=== PATIENT | female | born 1995 | race Hispanic/Latino ===

== ENCOUNTER 2017-01-06 15:14 | Observation (INO) | payer OTHER ==
[2017-01-06 15:52] VITALS: BMI 23.2
[2017-01-06] MEDS ORDERED: Sodium Chloride 0.9% 1,000 ML IV STA (16:02)
--- NOTE | 2017-01-06 16:09 | ED PDOC ---
"Arrival/HPI - General Chief Complaint: Abdominal Pain Time Seen by Provider: 01/06/17 15:18 Historian: Patient - History of Present Illness Narrative History of Present Illness (Text): 01/06/17 16:20 21-year-old female with history of lupus presents today with a one-week history of lower abdominal pain. Patient describes intermittent crampy lower abdominal pain greatest in the left lower quadrant of the abdomen. Denies any urinary symptoms. Denies vaginal bleeding or vaginal discharge. No chest pain or shortness of breath. Denies fevers or chills. Denies back pain. Patient states is a history of colitis in the past. She denies rectal bleeding. No medications have been taken at home. No other complaints Time/Duration: 1 week Symptom Onset: Gradual Symptom Course: Intermittent Quality: Cramping Severity Level: 4 Past Medical History - Provider Review Nursing Documentation Reviewed: Yes - Travel History Have you recently traveled outside [place] w/in the past 3 mons?: No - Infectious Disease Hx of Infectious Diseases: None - Tetanus Immunization Tetanus Immunization: Unknown - Cardiac Hx Cardiac Disorders: No - Pulmonary Hx Respiratory Disorders: No - Neurological Hx Neurological Disorder: No - HEENT Hx HEENT Disorder: No - Renal Hx Renal Disorder: Yes Hx Pyelonephritis: Yes (09/10/13) - Endocrine/Metabolic Hx Endocrine Disorders: Yes Hx Systemic Lupus Erythematosus: Yes Other/Comment: lupus - Hematological/Oncological Hx Blood Disorders: No - Integumentary Hx Dermatological Disorder: No - Musculoskeletal/Rheumatological Hx Falls: No - Gastrointestinal Hx Gastrointestinal Disorders: No - Genitourinary/Gynecological Hx Genitourinary Disorders: Yes Hx Urinary Tract Infection: Yes - Psychiatric Hx Psychophysiologic Disorder: No Hx Substance Use: Yes - Surgical History Hx Musculoskeletal Surgery: Yes (L miniskus) - Anesthesia Hx Anesthesia: Yes Hx Anesthesia Reactions: No Hx Malignant Hyperthermia: No - Suicidal Assessment Feels Threatened In Home Enviroment: No Family/Social History - Physician Review Nursing Documentation Reviewed: Yes Family/Social History: Unknown Family HX Smoking Status: Current Some Days Smoker Hx Alcohol Use: Yes (social) Hx Substance Use: Yes Substance used: marijuana Hx Substance Use Treatment: No Allergies/Home Meds Allergies/Adverse Reactions: Allergies levofloxacin [From Levaquin] Allergy (Verified 01/06/17 15:52) RASH Home Medications: Home Meds Medication Instructions Recorded Confirmed Hydroxychloroquine Sulfate 400 mg PO BID 02/16/14 01/01/17 [Plaquenil] Methylprednisolone 8 mg PO DAILY 09/10/13 07/26/16 Meloxicam [Mobic] 15 mg PO PRN PRN 10/27/15 10/27/15 Review of Systems - Review of Systems Constitutional: absent: Fatigue, Fevers Respiratory: absent: SOB, Cough Cardiovascular: absent: Chest Pain, Palpitations Gastrointestinal: Abdominal Pain. absent: Constipation, Diarrhea, Nausea, Vomiting Genitourinary Female: absent: Dysuria, Frequency, Hematuria Musculoskeletal: absent: Arthralgias, Back Pain, Neck Pain Skin: absent: Rash, Pruritis Psychiatric: absent: Anxiety, Depression Physical Exam Vital Signs Temp Pulse Resp BP Pulse Ox 01/06/17 19:09 75 18 125/71 100 01/06/17 17:33 79 18 128/75 100 01/06/17 16:00 98.8 F 83 14 130/77 100 - Systems Exam Head: Present: Atraumatic Mouth: Present: Moist Mucous Membranes Neck: Present: Normal Range of Motion Respiratory/Chest: Present: Clear to Auscultation, Good Air Exchange. No: Respiratory Distress, Accessory Muscle Use Cardiovascular: Present: Regular Rate and Rhythm, Normal S1, S2. No: Murmurs Abdomen: Present: Tenderness (minimal llq tenderness), Normal Bowel Sounds. No : Distention, Peritoneal Signs, Rebound, Guarding, McBurney's Point Tender Back: Present: Normal Inspection Upper Extremity: Present: Normal ROM Lower Extremity: Present: Normal ROM Skin: Present: Warm, Dry, Normal Color. No: Rashes Psychiatric: Present: Alert, Oriented x 3 Medical Decision Making ED Course and Treatment: 01/06/17 16:22 Patient is nontoxic well appearing with stable vital signs presenting with abdominal pain CBC wnl CMP wnl Amylase wnl Lipase wnl Urinalysis wnl CAT scan FINDINGS: Previously seen right ovarian cyst has resolved. Bilateral ovarian follicles noted. Trace free fluid in the cul-de-sac. Normal uterus and urinary bladder. The appendix is normal. There is no bowel inflammation, obstruction, free intraperitoneal air, or abdominal ascites. Subcentimeter focus of low attenuation in the right lobe of the liver is nonspecific but likely benign. The biliary tree, gallbladder, pancreas, spleen, adrenal glands, kidneys, urinary bladder, and osseous structures are unremarkable. JD WEBSTER | Preliminary Radiology Report ENGINE MECHANIC (QA) DISCREPANCY? If there is a discrepancy between the preliminary and final interpretation, please notify [facility] via [email or web address]. If you do not have access to our QA portal, call our QA team at [phone] CONFIDENTIALITY STATEMENT This report is intended only for the use of the referring physician, and only in accordance with law, If you received this in error, call [phone] Page 2 of 2 IMPRESSION: No acute abdominal or pelvic abnormalities. Trace free fluid in the cul-de-sac likely physiologic. Normal ovaries. Patient reassessment:pt non toxic well appearing; no distress. stable vitals. Discussed all results with patient in depth Impression: Abdominal pain Motrin every 6 hours as needed for pain Follow up with primary care physician within the next 2 days Follow up with the GI doctor within the next 2 days Increase fluids. Return immediately if symptoms worsen persist or if new symptoms develop: High fevers, increasing pain, vomiting, diarrhea or any other concerning symptoms develop 01/06/17 20:27 - Lab Interpretations Lab Results: 01/06/17 16:42 01/06/17 16:42 Lab Results 01/06/17 16:42: WBC 8.4 D, RBC 4.74, Hgb 12.3, Hct 38.1, MCV 80.4, MCH 25.9, MCHC 32.3, RDW 12.8, Plt Count 268, MPV 10.6, Gran % 78.6 H, Lymph % (Auto) 18.1 L, Campbell % (Auto) 3.1, Eos % (Auto) 0.1 L, Baso % (Auto) 0.1, Gran # 6.58 H , Lymph # 1.5, Campbell # 0.3, Eos # 0.0, Baso # 0.01 01/06/17 16:42: Sodium 138, Potassium 4.0, Chloride 103, Carbon Dioxide 26, Anion Gap 13, BUN 13, Creatinine 0.6, Est GFR ( Amer) > 60, Est GFR (Non- Af Amer) > 60, Random Glucose 97, Calcium 9.2, Total Bilirubin 0.4, AST 27, ALT 22, Alkaline Phosphatase 70, Total Protein 7.3, Albumin 4.0, Globulin 3.3, Albumin/Globulin Ratio 1.2, Amylase 70, Lipase 75 01/06/17 16:10: Urine Color Light yellow, Urine Appearance Clear, Urine pH 7.5, Ur Specific [place] 1.020, Urine Protein Negative, Urine Glucose (UA) Negative, Urine Ketones Negative, Urine Blood Negative, Urine Nitrate Negative, Urine Bilirubin Negative, Urine Urobilinogen 0.2, Ur Leukocyte Esterase Negative, Urine HCG, Qual Negative - RAD Interpretation Radiology Orders: 01/06/17 16:02 ABD & PELVIS IV CONTRAST ONLY [CT] Stat - Medication Orders Current Medication Orders: Discontinued Medications Famotidine (Pepcid) 20 mg IVP STAT STA Stop: 01/06/17 18:28 Last Admin: 01/06/17 18:50 Dose: 20 mg Sodium Chloride (Sodium Chloride 0.9%) 1,000 mls @ 999 mls/hr IV .Q1H1M STA Stop: 01/06/17 17:02 Last Admin: 01/06/17 16:43 Dose: 999 mls/hr Iohexol (Omnipaque 350 100 Ml) Confirm Administered Dose 350 mg .ROUTE .STK-MED ONE Stop: 01/06/17 18:40 Ketorolac Tromethamine (Toradol) 15 mg IVP STAT STA Stop: 01/06/17 18:28 Last Admin: 01/06/17 18:45 Dose: 15 mg ED OBSERVATION Discharge: Yes Date of observation admission: 01/06/17 Time of observation admission: 16:05 - Observation admission statement Patient is being placed in observation because:: abdominal pain - Goals of Observation Goals of observation are:: improvement in symptoms - Progress Note Progress Note: 01/06/17 18:20 pt non toxic; no distress. 01/06/17 20:26 all results discussed with patient and mother; will d/c home to f/u with GI. Disposition/Present on Arrival - Present on Arrival Any Indicators Present on Arrival: No History of DVT/PE: No History of Uncontrolled Diabetes: No Urinary Catheter: No History of Decub. Ulcer: No History Surgical Site Infection Following: None - Disposition Have Diagnosis and Disposition been Completed?: Yes Diagnosis: Abdominal pain Disposition: HOME/ ROUTINE Disposition Time: 20:28 Patient Plan: Discharge Condition: GOOD Discharge Instructions (ExitCare): Acute Abdominal Pain (ED) Additional Instructions: Motrin every 6 hours as needed for pain Follow up with primary care physician within the next 2 days Follow up with the GI doctor within the next 2 days Increase fluids. Return immediately if symptoms worsen persist or if new symptoms develop: High fevers, increasing pain, vomiting, diarrhea or any other concerning symptoms develop Referrals: Dominguez Butt MD [Primary Care Provider] - Follow up with primary Ari Omer MD [Staff Provider] - Follow up with primary Forms: WORK NOTE"
[2017-01-06 16:31] LABS: PH,URINE 7.5 (4.7-8.0); URINE BILIRUBIN NEGATIVE (NEGATIVE); URINE BLOOD NEGATIVE (NEGATIVE); URINE GLUCOSE (UA) NEGATIVE (NEGATIVE); URINE KETONE NEGATIVE (NEGATIVE); URINE LEUKOCYTE ESTERASE NEGATIVE Leu/uL (NEGATIVE); URINE PROTEIN NEGATIVE mg/dL (<30 mg/dL); URINE UROBILINOGEN 0.2 E.U./dL (<1 E.U./dL)
[2017-01-06 16:33] LABS: URINE APPEARANCE CLEAR (CLEAR); URINE COLOR LIGHT YELLOW (YELLOW)
[2017-01-06 17:07] LABS: ADD MANUAL DIFF? NO
[2017-01-06 17:14] LABS: BASO # 0.01 K/mm3 (0.0-2.0); BASO % 0.1 % (0.0-3.0); EOS % 0.1 % (1.5-5.0); GRAN # 6.58 (1.4-6.5); GRAN % 78.6 % (50.0-68.0); HEMATOCRIT 38.1 % (36.0-48.0); LYMPH # 1.5 (1.2-3.4); LYMPH % 18.1 % (22.0-35.0); MEAN CELL VOLUME 80.4 fL (80.0-105.0); MEAN CORPUSCULAR HEMOGLOBIN 25.9 pg (25.0-35.0); MEAN CORPUSCULAR HGB CONC 32.3 g/dl (31.0-37.0); MEAN PLATELET VOLUME 10.6 fl (7.0-11.0); MONO # 0.3 (0.1-0.6); MONO % 3.1 % (1.0-6.0); PLATELET COUNT 268 10^3/uL (120.0-450.0); RED CELL DISTRIBUTION WIDTH 12.8 % (11.5-14.5); WHITE BLOOD COUNT 8.4 10^3/ul (4.5-11.0)
[2017-01-06 17:24] LABS: BLOOD UREA NITROGEN 13 mg/dL (7-21); CALCIUM 9.2 mg/dL (8.4-10.5); CARBON DIOXIDE 26 mmol/L (21-33); CHLORIDE 103 mmol/L (98-107); GFR AFRICAN-AMERICAN > 60; GLUCOSE,RANDOM 97 mg/dL (70-110); SODIUM 138 mmol/L (132-148); TOTAL PROTEIN 7.3 g/dL (5.8-8.3)
[2017-01-06 17:25] LABS: ALB/GLOB RATIO 1.2 (1.1-1.8); ALKALINE PHOSPHATASE 70 U/L (38-133); ALT/SGPT 22 U/L (7-56); AMYLASE 70 U/L (35-125); AST/SGOT 27 U/L (15-39); BILIRUBIN,TOTAL 0.4 mg/dL (0.2-1.3); LIPASE 75 U/L (23-300)
[2017-01-06 17:33] VITALS: RESP 18
[2017-01-06] MEDS ORDERED: Iohexol 350 MG/100 ML VIAL ONE (18:39)
[2017-01-06 20:38] VITALS: BP 119/77; PULSE 76; O2SAT 99
[2017-01-06 20:42] VITALS: TEMP 98
--- NOTE | 2017-01-07 07:48 | CT ---
PROCEDURE: CT Abdomen and Pelvis with contrast HISTORY: Abdominal pain COMPARISON: 10/27/2015. TECHNIQUE: CT scan of the abdomen and pelvis was performed after intravenous administration of contrast. Oral contrast was not administered. Coronal and sagittal reformatted images were obtained. Contrast dose: 95 mL Omnipaque 350 Radiation dose: Total exam DLP = 244.83 mGy-cm. This CT exam was performed using one or more of the following dose reduction techniques: Automated exposure control, adjustment of the mA and/or kV according to patient size, and/or use of iterative reconstruction technique. FINDINGS: LOWER THORAX: The lung bases are clear. LIVER: Normal in size and there is homogeneous enhancement. No gross lesion or ductal dilatation. GALLBLADDER AND BILE DUCTS: No calcified gallstones. PANCREAS: The pancreas is normal in size and there is homogeneous enhancement. No gross lesion or ductal dilatation. SPLEEN: The spleen is normal in size and there is homogeneous enhancement. ADRENALS: Both adrenal glands are normal in size without discrete nodule. KIDNEYS AND URETERS: Both kidneys are normal in size and there is homogeneous enhancement. No hydronephrosis. No solid mass. VASCULATURE: No aortic aneurysm. BOWEL: The small bowel loops are normal in caliber. There is moderate amount of stool in the colon. No bowel wall thickening, dilatation or obstruction. APPENDIX: Normal appendix. PERITONEUM: There is small amount of free fluid in the pelvis. No free air. LYMPH NODES: No enlarged lymph nodes. BLADDER: Unremarkable. REPRODUCTIVE: The uterus is normal in size. Previously seen right ovarian cyst has resolved. BONES: No acute fracture. Within normal limits for the patient's age with OTHER FINDINGS: None. IMPRESSION: No acute abdominal or pelvic abnormality. Small amount of free fluid in the pelvis is likely physiologic. A preliminary report was provided by [facility].
== END 2017-01-06 20:27 | disposition home or self-care (01) ==
LOC: ED 15:14 → EROBSV 16:02
PROVIDERS: ADMIT Emergency Medicine; ATTEND Emergency Medicine
DX: R10.30 Lower abdominal pain, unspecified (principal); M32.9 Systemic lupus erythematosus, unspecified
CPT/HCPCS: 74177; 80053; 81003; 82150; 83690; 84703; 85025; 96361; 96374; 96375; 99285; G0378; J1885; J7040; Q9967